=== PATIENT | female | born 1970 | race Caucasian/White ===

== ENCOUNTER → 2025-10-23 | Outpatient (CLI) | payer OTHER, SELFPAY ==
[2025-10-23 17:47] LABS: Hematocrit 40.6 % (37-47); Hemoglobin 13.4 g/dL (12.0-15.0); Immature Granulocytes Count 0.020 X10^3/uL (0.0-0.0); Mean Corp Hgb Conc 33.0 g/dL (32-36); Mean Corpuscular Volume 82.0 fL (81-99); Mean Platelet Vol. 10.6 fl (6.2-12.0); NRBC Flagged by Analyzer 0 % (0-5); Platelet Count 255 K/mm3 (150-450); RBC Distribution Width CV 12.8 % (11.6-14.6); RBC Distribution Width SD 38.2 fl (35.1-43.9); Red Blood Count 4.95 M/mm3 (4.2-5.4); White Blood Count 7.1 K/mm3 (4.4-11.0)
[2025-10-23 18:11] LABS: AST(SGOT) 18 U/L (<=31); Alanine Aminotransfer ALT/SGPT 13 U/L (<=34); Albumin, Serum 4.2 g/dL (3.5-5.0); Alkaline Phosphatase 80 U/L (35-104); Anion Gap 10 (5-15); BUN 13 mg/dL (4-19); BUN/Creat Ratio 24.3 RATIO (10-20); Calcium,Total 9.7 mg/dL (7.6-11.0); Carbon Dioxide 25.8 mmol/L (21.0-32.0); Chloride 100 mmol/L (98-108); Globulin 2.6 g/dL (2.2-4.2); Glucose 99 mg/dL (70-99); Potassium 3.9 mmol/L (3.3-5.1)
[2025-10-23 18:13] LABS: Ferritin 22 ng/mL (22-378); Free T3 4.9 pg/mL (2.18-3.98)
[2025-10-25 17:08] LABS: Anti-dsDNA Ab <1 IU/mL (0-9)
[2025-10-27 14:08] LABS: Zinc, Plasma or Serum 71 ug/dL (44-115)
== END | disposition home or self-care (01) ==
LOC: MTLAB 14:56
PROVIDERS: Referring Provider Physician Assistant; Visit Provider Physician Assistant
DX: L65.9 Nonscarring hair loss, unspecified (principal)
CPT/HCPCS: 36415; 80053; 82627; 82728; 84402; 84439; 84443; 84481; 84630; 85025; 86038; 86225; 86376; 82626